=== PATIENT | female | born 1995 | race Caucasian/White ===

== ENCOUNTER → 2019-05-29 | Outpatient (CLI) | payer OTHER ==
[~2019-05-29] MED LIST: ACET-685 PO; FERR325T15 PO; PHEN37.53 PO; RANI-443 PO; TOPI25TA52 PO
--- NOTE | 2019-05-29 11:26 | DIREP ---
PROCEDURE:MRI - BRAIN WITH AND WITHOUT CONTRAST COMPARISON:None. INDICATIONS:G43.719 CHRONIC MIGRAINE TECHNIQUE:A variety of imaging planes and parameters were utilized for visualization of suspected pathology in the brain. Images were performed without and with gadolinium contrast.. FINDINGS: CSF SPACES:Ventricles, cisterns, and sulci are appropriate for age. No hydrocephalus, subarachnoid hemorrhage, or mass. The ventricles are of normal size. No significant atrophy is seen. There are no white matter changes identified in the centrum semiovale or in the periventricular and subcortical white matter. No evidence for demyelinating disorder is seen. Basal ganglia and thalamus are satisfactory. Meckel's cave, pineal gland and cavernous sinuses are unremarkable. CEREBRUM:No edema, hemorrhage, mass, acute infarction, or inappropriate atrophy. The diffusion-weighted images are satisfactory. No evidence of restricted diffusion is seen to suggest an acute or hyperacute infarct. Corpus callosum, sella, chiasm, cervicomedullary craniovertebral junctions are normal. No tonsillar ectopia is seen. Clivus and the odontoid are satisfactory. The arteries are patent at the level of [place]. No acute infarct, bleed or mass lesion is seen. No acute or chronic epidural, subdural subarachnoid hemorrhage is seen. No edema, midline shift or increased intracranial pressure is seen. Upon contrast administration, no abnormal enhancement is seen in the brain. CEREBELLUM:No edema, hemorrhage, mass, acute infarction, or inappropriate atrophy. No posterior fossa infarcts or mass lesions are seen. BRAINSTEM:No edema, hemorrhage, mass, acute infarction, or inappropriate atrophy. No focal ischemic changes in the medulla, mavis, brainstem and peduncle. SKULL:No mass or other significant visible lesion. SINUSES:No air-fluid levels are seen in the maxillary sinuses. Minimal mucosal thickening noted. The ethmoid and the sphenoid sinuses are satisfactory. No evidence for acute mastoiditis. Orbits and calvarium are normal. OTHER:None. CONCLUSION: Negative MRI of the brain with and without contrast. No evidence for demyelinating disorder or any focal white matter changes are seen. Patent intracranial vessels, no acute infarct, bleed or mass lesion is seen. No abnormal enhancement in the brain. No air-fluid levels are seen in the maxillary or sphenoid sinuses. Dictated by: Fahad Aguilar MD on 05/29/2019 at 11:21 AM
--- NOTE | 2019-05-29 11:31 | DIREP ---
PROCEDURE:MRA HEAD W/O CONTRAST COMPARISON:None. INDICATIONS:G43.719 CHRONIC MIGRAINE TECHNIQUE:MR angiography was performed in the usual manner yielding 3D reconstructed images of the cerebral arteries. FINDINGS: INTERNAL CAROTIDS:No visible stenosis or aneurysm. The horizontal and vertical Gonzalez, the cavernous and the supraclinoid segments of both the internal carotid artery is are patent. No terminal ICA aneurysm is seen. ANTERIOR CEREBRALS:The right A1 segment appears to be small or atretic in size as compared to the left side. No anterior communicating artery aneurysm is seen. Both the anterior cerebral artery is differential ER filled through the left side. MIDDLE CEREBRALS:No visible stenosis or aneurysm. No MCA bifurcation aneurysm is seen. POSTERIOR CEREBRALS:No visible stenosis or aneurysm. The right posterior cerebral artery has a origin. BASILAR:No visible stenosis or aneurysm. VERTEBRALS:No visible stenosis or aneurysm. OTHER:Negative with no evidence of a vascular malformation. Please see a separate report of MRI of the brain. No aneurysm, vessel dissection is seen. CONCLUSION: Small size of the right A1 segment. No fibromuscular dysplasia, dissection or aneurysm is seen. origin of the right posterior cerebral artery. PLEASE NOTE that a normal brain MRA does not entirely exclude the possibility of small aneurysm, or the possibility of distal intracranial vessel disease. Dictated by: Fahad Aguilar MD on 05/29/2019 at 11:25 AM
== END | disposition home or self-care (01) ==
LOC: RAD 09:09
PROVIDERS: ATTEND Pediatrics
DX: G43.719 Chronic migraine without aura, intractable, without status migrainosus (principal)
CPT/HCPCS: 70544; 70553